=== PATIENT | male | born 1970 | race Caucasian/White ===

== ENCOUNTER 2016-10-07 19:12 | Emergency (ER) | payer SELFPAY ==
[~2016-10-07] VITALS: Ht 182.9 cm; Wt 80.0 kg
[2016-10-07] MEDS ORDERED: SODIUM CHLOR 0.9% 1000 ML INJ 1,000 ML IV ONE (19:27)
[2016-10-07] MEDS ORDERED: SODIUM CHLORIDE 0.9% FLUSH 5 ML FLUSH IVF PRN (19:30)
[2016-10-07 19:32] VITALS: BP 130/83; PULSE 104; RESP 20; TEMP 97.9; O2SAT 100
--- NOTE | 2016-10-07 19:35 | PD ---
HPI Chief Complaint: Altered Mental Status Time Seen by Provider: 19:27 Travel History International Travel<30 days: No Contact w/Intl Traveler<30days: No Traveled to known affect area: No History of Present Illness HPI The patient is a 46 year old male who presents to the [facility] emergency department with a history of being found unresponsive in his vehicle at a gas station prior to arrival. According to ambulance services of friend stated that he took Dilaudid. The patient was found to have a GCS of 3, pinpoint pupils with a respiratory rate of 3-4 times a minute. The patient was briefly bagged, IV access was obtained and the patient was given 0.4 mg of Narcan. The patient became quickly awake and alert. The patient was confused as to the events. The patient reports that he recently moved to the area. He reports that he was previously on oxycodone up until a month ago for chronic back pain. He has not established with a local primary care physician. He reports that he was given a Dilaudid tablet from someone. He does not know what the dose was. He reports that he took orally. He did not inject or snort it. The patient denies any recent fevers, cough, congestion, neck pain, chest pain, shortness of breath, abdominal pain, vomiting, diarrhea, urinary symptoms, or neurologic symptoms. [facility] Past Medical History Narrative Medical The patient's past medical history is reportedly significant for a prior myocardial infarction, mild stroke without any residual weakness, history of chronic back pain. Past Surgical History Narrative Surgical The patient's past surgical history is significant for a cholecystectomy, right wrist ORIF. Social History Alcohol Use: No Tobacco Use: Yes (he dips tobacco.) Substance Use: Yes (opiates) Allergies-Medications (Allergen,Severity, Reaction): Coded Allergies: Phenergan (Verified Allergy, Severe, 10/07/16) Morphine (Verified Adverse Reaction, Unknown, 10/07/16) Causes Agitation Reported Meds & Prescriptions Reported Meds & Active Scripts Active No Active Prescriptions or Reported Medications Narrative Medication None Review of Systems General / Constitutional: No: Fever Eyes: No: Visual changes HENT: No: Headaches Cardiovascular: No: Chest Pain or Discomfort Respiratory: No: Shortness of Breath Gastrointestinal: No: Abdominal Pain Genitourinary: No: Dysuria Musculoskeletal: No: Pain Skin: No Rash Neurologic: Positive: Weakness, Change in Mentation, No: Focal Abnormalities, Sensory Disturbance Psychiatric: No: Depression Endocrine: No: Polydipsia Hematologic/Lymphatic: No: Easy Bruising Physical Exam Narrative General: The patient is a well-developed well-nourished male in no acute distress. Head and Neck exam: Head is normocephalic atraumatic. Eyes: EOMI, pupils are equal round and reactive to light. Nose: Midline septum with pink mucous membranes Mouth: Dentition unremarkable. Moist mucus membranes. Posterior oropharynx is not erythematous. No tonsillar hypertrophy. Uvula midline. Airway patent. Neck: No palpable lymphadenopathy. No nuchal rigidity. No thyromegaly. Cardiovascular: Sinus tachycardia in the low 100 without murmurs, gallops, or rubs. No pulse deficit to the extremities and simultaneous auscultation and palpation of his radial artery. Lungs: Clear to auscultation bilaterally. No wheezes, rhonchi, or rales. Abdomen: Soft, without tenderness to palpation in all 4 quadrants of the abdomen. No guarding, rebound, or rigidity. Normal bowel sounds are audible. Extremities: No clubbing, cyanosis, or edema. 2+ pulses in all 4 extremities. No calf tenderness on palpation. Back: No spinous process tenderness to palpation. No costovertebral angle tenderness to palpation. Neurologic Exam: Cranial nerves 2-12 were intact on exam. Strength is 5/5 in all 4 extremities. No sensory deficits noted. The patient is oriented to person, place, time, however no situation. Skin Exam: No rash noted. Intact skin that is warm and dry. Data Data Last Documented VS Vital Signs Date Time Temp Pulse Resp B/P Pulse Ox O2 Delivery O2 Flow Rate FiO2 10/07/16 22:22 75 16 116/77 100 Nasal Cannula 2 10/07/16 19:43 97.9 Orders Electrocardiogram (10/07/16 19:27) Alcohol (Ethanol) (10/07/16 19:27) Complete Blood Count With Diff (10/07/16 19:27) Comprehensive Metabolic Panel (10/07/16 19:27) Drug Screen, Random Urine (10/07/16 19:27) Salicylates (Aspirin) (10/07/16 19:27) Tylenol (Acetaminophen) (10/07/16 19:27) Urinalysis - C+S If Indicated (10/07/16 19:27) Chest, Single Ap (10/07/16 19:27) Iv Access Insert/Monitor (10/07/16 19:27) Ecg Monitoring (10/07/16 19:27) Oximetry (10/07/16 19:27) Sodium Chloride 0.9% Flush (Ns Flush) (10/07/16 19:30) Sodium Chlor 0.9% 1000 Ml Inj (Ns 1000 M (10/07/16 19:27) Ct Brain W/O Iv Contrast(Rout) (10/07/16 19:27) Mri Brain W&W/O Contrast (10/07/16 21:13) Gadodiamide Pf Inj (Omniscan Pf Inj) (10/07/16 22:25) Labs Laboratory Tests Test 10/07/16 10/07/16 19:30 20:20 White Blood Count 7.2 TH/MM3 Red Blood Count 4.69 MIL/MM3 Hemoglobin 13.7 GM/DL Hematocrit 39.8 % Mean Corpuscular Volume 84.9 FL Mean Corpuscular Hemoglobin 29.3 PG Mean Corpuscular Hemoglobin 34.5 % Concent Red Cell Distribution Width 13.8 % Platelet Count 222 TH/MM3 Mean Platelet Volume 9.6 FL Neutrophils (%) (Auto) 76.9 % Lymphocytes (%) (Auto) 16.7 % Monocytes (%) (Auto) 4.5 % Eosinophils (%) (Auto) 1.3 % Basophils (%) (Auto) 0.6 % Neutrophils # (Auto) 5.5 TH/MM3 Lymphocytes # (Auto) 1.2 TH/MM3 Monocytes # (Auto) 0.3 TH/MM3 Eosinophils # (Auto) 0.1 TH/MM3 Basophils # (Auto) 0.0 TH/MM3 CBC Comment DIFF FINAL Differential Comment Sodium Level 139 MEQ/L Potassium Level 3.5 MEQ/L Chloride Level 101 MEQ/L Carbon Dioxide Level 28.7 MEQ/L Anion Gap 9 MEQ/L Blood Urea Nitrogen 12 MG/DL Creatinine 0.99 MG/DL Estimat Glomerular Filtration 82 ML/MIN Rate Random Glucose 158 MG/DL Calcium Level 8.6 MG/DL Total Bilirubin 0.9 MG/DL Aspartate Amino Transf 67 U/L (AST/SGOT) Alanine Aminotransferase 51 U/L (ALT/SGPT) Alkaline Phosphatase 73 U/L Total Protein 7.4 GM/DL Albumin 4.0 GM/DL Salicylates Level LESS THAN 1.7 MG/DL Acetaminophen Level LESS THAN 2.0 MCG/ML Ethyl Alcohol Level LESS THAN 3 MG/DL Urine Color YELLOW Urine Turbidity CLEAR Urine pH 7.0 Urine Specific Royal 1.017 Urine Protein 30 mg/dL Urine Glucose (UA) NEG mg/dL Urine Ketones NEG mg/dL Urine Occult Blood NEG Urine Nitrite NEG Urine Bilirubin NEG Urine Urobilinogen LESS THAN 2.0 MG/DL Urine Leukocyte Esterase NEG Urine RBC 1 /hpf Urine WBC 1 /hpf Urine Mucus FEW /lpf Microscopic Urinalysis Comment CULT NOT INDICATED Urine Opiates Screen POS Urine Barbiturates Screen NEG Urine Amphetamines Screen NEG Urine Benzodiazepines Screen POS Urine Cocaine Screen POS Urine Cannabinoids Screen NEG MDM Medical Decision Making Medical Screen Exam Complete: Yes Emergency Medical Condition: Yes Medical Record Reviewed: Yes Interpretation(s) Last Impressions Head CT 10/07/161926 Signed Impressions: Service Date/Time: Friday, October 07, 2016 19:44 - CONCLUSION: Subcentimeter spontaneously dense focus of the right side of the cerebellum, differential including acute or subacute hemorrhage, mass and calcification. MRI with and without contrast recommended. Otherwise negative noncontrast head CT. Andry Orozco MD Chest X-Ray 10/07/161926 Signed Impressions: Service Date/Time: Friday, October 07, 2016 19:41 - CONCLUSION: No evidence of acute cardiopulmonary disease. Andry Orozco MD Differential Diagnosis Accidental opiate overdose, versus other substance intoxication, versus withdrawal syndrome, versus seizure activity with postictal state Narrative Course During the course of the patients emergency department visit, the patients history, examination, and differential diagnosis were reviewed with the patient. The patient had IV access obtained and blood work sent for analysis. The patient was placed on a property assessment monitor with oximetry and blood pressure monitoring. An EKG was done on arrival. The patient's EKG shows a sinus tachycardia rate of 105, no acute ST segment changes are noted. A CT scan of the brain, chest x-ray was ordered. The patient was provided normal saline 1 L IV fluid bolus. The patients laboratory studies were reviewed and remarkable for a white count of 7.2, hemoglobin 13.7, platelets 222 with 76.9 neutrophils, CMP is remarkable for glucose of 158, AST 67, urine drug screen is positive for opiates, benzodiazepines, cocaine. Salicylate less than 1.7, acetaminophen less than 2, alcohol level less than 3, urinalysis shows 30 protein otherwise unremarkable Radiology studies were reviewed and remarkable for a chest x-ray that shows no acute abnormality, CT scan of the brain shows a subcentimeter spontaneously dense focus of the right side of the cerebellum, differential includes acute or subacute hemorrhage, mass and calcification, MRI with and without contrast is recommended. MRI of the brain with and without contrast reveals a benign- appearing venous angioma with a large draining pain in the right cerebellar hemisphere. This is reportedly of no clinical significance, otherwise normal MRI of the brain with and without contrast according to the reading radiologist. The patient is resting comfortably and feels better, is alert and in no distress. The patients results and examination findings were discussed with the patient. The repeat examination is unremarkable and benign. The history, exam, diagnostic testing, and current condition do not suggest any significant pathology to warrant further testing, continued ED treatment, admission, or surgical evaluation at this point. The vital signs have been stable. The patient does not have uncontrollable pain, intractable vomiting, or other significant symptoms. The patient's condition is stable and appropriate for discharge. The patient will pursue further outpatient evaluation with a primary care physician or other designated or consulting physician as indicated in the discharge instructions. The patient expressed understanding and was agreeable with this plan. Diagnosis Primary Impression: Accidental overdose Qualified Code: T50.901A - Accidental overdose, initial encounter Referrals: Primary Care Physician 1 week Patient Instructions: General Instructions, Polysubstance Abuse (ED) Additional Instructions: The patient is instructed to avoid street drugs and medications that are not prescribed specifically to him. Med/Other Pt SpecificInfo: No Change to Meds Scripts No Active Prescriptions or Reported Meds Disposition: 01 DISCHARGE HOME Condition: Stable Marilu Luis MD Oct 07, 2016 19:35
[2016-10-07 19:42] VITALS: RESP 20; O2SAT 100
[2016-10-07 19:43] VITALS: BP 130/83; PULSE 104; RESP 20; TEMP 97.9; O2SAT 100
--- NOTE | 2016-10-07 19:58 | RADRPT ---
EXAM DATE/TIME: 10/07/2016 19:41 [facility] COMPARISON: No previous studies available for comparison. INDICATIONS : Syncopal episode. Possible overdose. MEDICAL HISTORY : None. SURGICAL HISTORY : None. ENCOUNTER: Initial ACUITY: 1 day PAIN SCORE: 0/10 LOCATION: Bilateral chest FINDINGS: A single view of the chest demonstrates the lungs to be symmetrically aerated without evidence of mas s, infiltrate or effusion. The cardiomediastinal contours are unremarkable. Osseous structures are intact. CONCLUSION: No evidence of acute cardiopulmonary disease. Andry Orozco MD on October 07, 2016 at 19:57 Board Certified Radiologist. This report was verified electronically.
[2016-10-07 19:59] LABS: AUTOMATED NEUTROPHIL # 5.5 TH/MM3 (1.8-7.7); BASOPHIL % 0.6 % (0.0-2.0); EOSINOPHIL # 0.1 TH/MM3 (0-0.4); EOSINOPHIL % 1.3 % (0.0-4.0); HEMATOCRIT 39.8 % (39.0-51.0); HEMO FLAGS DIFF FINAL; LYMPH % 16.7 % (9.0-44.0); LYMPHOCYTE # 1.2 TH/MM3 (1.0-4.8); MEAN CELL VOLUME 84.9 FL (80.0-100.0); MEAN CORPUSCULAR HEMOGLOBIN 29.3 PG (27.0-34.0); MEAN CORPUSCULAR HGB CONC 34.5 % (32.0-36.0); MONO % 4.5 % (0.0-8.0); NEUT % 76.9 % (16.0-70.0); PLATELET COUNT 222 TH/MM3 (150-450); RED BLOOD COUNT 4.69 MIL/MM3 (4.50-5.90); RED CELL DISTRIBUTION WIDTH 13.8 % (11.6-17.2); WHITE BLOOD COUNT 7.2 TH/MM3 (4.0-11.0)
--- NOTE | 2016-10-07 20:01 | RADRPT ---
EXAM DATE/TIME: 10/07/2016 19:44 [facility] COMPARISON: No previous studies available for comparison. INDICATIONS : Altered mental status today, possible overdose. RADIATION DOSE: 56.35 CTDIvol (mGy) MEDICAL HISTORY : None SURGICAL HISTORY : None. ENCOUNTER: Initial ACUITY: 1 day PAIN SCALE: 0/10 LOCATION: Bilateral head TECHNIQUE: Multiple contiguous axial images were obtained of the head. Using automated exposure control and adj ustment of the mA and/or kV according to patient size, radiation dose was kept as low as reasonably a chievable to obtain optimal diagnostic quality images. FINDINGS: CEREBRUM: The ventricles are normal for age. No evidence of midline shift, mass lesion, hemorrhage or acute in farction. No extra-axial fluid collections are seen. POSTERIOR FOSSA: 6 mm spontaneously dense intra-axial focus seen in the right cerebellar hemisphere. EXTRACRANIAL: The visualized portion of the orbits is intact. SKULL: The calvaria is intact. No evidence of skull fracture. CONCLUSION: Subcentimeter spontaneously dense focus of the right side of the cerebellum, differential including a cute or subacute hemorrhage, mass and calcification. MRI with and without contrast recommended. Other mullen negative noncontrast head CT. Andry Orozco MD on October 07, 2016 at 19:57 Board Certified Radiologist. This report was verified electronically.
[2016-10-07 20:27] LABS: ANION GAP 9 MEQ/L (5-15)
[2016-10-07 20:31] LABS: ALKALINE PHOSPHATASE 73 U/L (45-117); ALT (GPT) 51 U/L (12-78); AST (GOT) 67 U/L (15-37); BICARBONATE 28.7 MEQ/L (21.0-32.0); BLOOD UREA NITROGEN 12 MG/DL (7-18); CHLORIDE 101 MEQ/L (98-107); GLOMERULAR FILTRATION RATE 82 ML/MIN (>89); POTASSIUM 3.5 MEQ/L (3.5-5.1); SODIUM (NA) 139 MEQ/L (136-145); TOTAL BILIRUBIN ADULT 0.9 MG/DL (0.2-1.0)
[2016-10-07 20:34] LABS: ACETAMINOPHEN LESS THAN 2.0 MCG/ML (10.0-30.0)
[2016-10-07 20:50] LABS: BLOOD, URINE NEG (NEG); COMMENT (UR) CULT NOT INDICATED; CULTURE IF INDICATED CULT NOT INDICATED; GLUCOSE,URINE NEG (NEG); KETONE, URINE NEG (NEG); MUCUS URINE FEW /lpf (OCC); NITRITE,URINE NEG (NEG); URINE COLOR YELLOW (YELLW/STRAW)
[2016-10-07 20:54] LABS: AMPHETAMINE, URINE NEG (NEG); BARBITURATES, URINE NEG (NEG); COCAINE, URINE POS (NEG)
[2016-10-07 22:22] VITALS: BP 116/77; PULSE 75; RESP 16; O2SAT 100
[2016-10-07] MEDS ORDERED: GADODIAMIDE PF 287 MG/ML 20 ML VIAL (for RAD MRI) IV PUSH ONE (22:25)
--- NOTE | 2016-10-07 22:39 | RADRPT ---
EXAM DATE/TIME: 10/07/2016 21:51 [facility] COMPARISON: CT BRAIN W/O CONTRAST, October 07, 2016, 19:44. INDICATIONS : Mass. CONTRAST: 16 cc Omniscan (gadodiamide) IV MEDICAL HISTORY : Seizures. Possible heart attack 8 yrs ago, possible stroke/tia 5 years ago, fracture of C2/3 abou t one year ago (stable, no sx). SURGICAL HISTORY : Cholecystectomy. Wrist fracture 35 years ago. ENCOUNTER: Initial ACUITY: 1 day PAIN SCORE: 10 LOCATION: Bilateral cranial TECHNIQUE: Multiplanar, multisequence MRI of the brain was performed both prior to and following the administrat ion of paramagnetic contrast. FINDINGS: CEREBRUM: The ventricles are normal for age. No evidence of midline shift, mass lesion, hemorrhage or acute in farction. No extraaxial fluid collections are seen. The pituitary gland and suprasellar cistern are normal in configuration. WHITE MATTER: No significant signal abnormalities are seen in the white matter. 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 This accounts for the right posterior fossa abnormality seen on [facility]'s noncontrast CT of the hea d. DIFFUSION IMAGING: No focal areas of restricted diffusion are seen. No evidence of acute infarction. EXTRACRANIAL: The visualized portions of the orbits and paranasal sinuses are unremarkable. POST-CONTRAST: No abnormal areas of parenchymal or dural enhancement. No evidence of blood-brain barrier breakdown. CONCLUSION: 1. There is a benign appearing venous angioma with a large draining vein in the right cerebellar alden sphere. This is of no acute clinical significance. 2. Otherwise normal MRI of the brain with and without contrast. Andry Orozco MD on October 07, 2016 at 22:35 Board Certified Radiologist. This report was verified electronically.
[2016-10-07 23:40] VITALS: BP 128/63; TEMP 98.5
--- NOTE | 2016-10-08 10:35 | EKG ---
Date Performed: 10/07/2016 Time Performed: 19:21:24 PTAGE: 46 years EKG: SINUS TACHYCARDIA ABNORMAL RHYTHM ECG NO PREVIOUS TRACING DOCTOR: Mando Luis Interpretating Date/Time 10/08/2016 10:34:02
== END 2016-10-07 23:49 | disposition home or self-care (01) ==
LOC: NEPC 19:12
DX: T50.901A Poisoning by unspecified drugs, medicaments and biological substances, accidental (unintentional), initial encounter (principal); R00.0 Tachycardia, unspecified; F14.10 Cocaine abuse, uncomplicated; Y92.9 Unspecified place or not applicable
CPT/HCPCS: 70450; 70553; 71010; 80053; 80307; 80329; 81001; 85025; 93005; 96360; 99285; A9579; J7030; 80320; G0480